=== PATIENT | female | born 1955 | race Asian ===

== ENCOUNTER 2017-07-26 05:46 | Day surgery (SDC) | payer OTHER ==
[2017-07-26] MEDS ORDERED: PROPOFOL 40 ML (07:44)
[2017-07-26] MEDS ORDERED: LIDOCAINE 2% (SDV) 5 ML INJ (07:44)
== END 2017-07-26 10:05 | disposition home or self-care (01) ==
LOC: GIL 05:46
DX: Z12.11 Encounter for screening for malignant neoplasm of colon (principal); D12.5 Benign neoplasm of sigmoid colon; K64.8 Other hemorrhoids; I10 Essential (primary) hypertension; E78.5 Hyperlipidemia, unspecified
CPT/HCPCS: 45380